=== PATIENT | female | born 1985 | race American Indian/Alaskan Native ===

== ENCOUNTER 2018-04-18 09:08 | Emergency (ER) | payer OTHER ==
[2018-04-18 09:31] VITALS: BP 117/66
[2018-04-18] MEDS ORDERED: TORADOL IV ONE (10:53)
[2018-04-18] MEDS ORDERED: BICILLIN L-A IM ONE (10:53)
[2018-04-18] MEDS ORDERED: NACL 0.9% 1000 ML 1,000 ML IV ONE (10:53)
[2018-04-18] MEDS ORDERED: DECADRON IV ONE (10:53)
--- NOTE | 2018-04-18 12:29 | Emergency Department Report ---
ED ENT HPI - General Chief complaint: Upper Respiratory Infection Stated complaint: SORE THROAT/NAUSEA/HEADACHE Time Seen by Provider: 04/18/18 10:43 Source: patient Mode of arrival: Ambulatory Limitations: No Limitations - History of Present Illness Initial comments: Patient is a 32-year-old [place] female who is presenting with sore throat. Patient states progressively worsening over the last 3 days. Patient is unable to swallow at this point. Patient states pain is a 8 out 10 in severity. She's had some chills but no objective fevers. Patient denies nausea vomiting. Patient states she sometimes has a sensation that she needs to cough however she is not having a productive cough at this time. Patient feels of a cough sensation is coming because of sore throat. Patient states when she swallows she feels very short of breath as well. - Related Data Previous Rx's Medication Instructions Recorded Last Taken Type HYDROcodone/ACETAMINOPHEN 15 ml PO Q6HR PRN #150 solution 04/18/18 Unknown Rx [Hydrocodon-Acetamin 7.5-325/15] prednisoLONE [Prednisolone] 45 mg PO DAILY 5 Days solution 04/18/18 Unknown Rx Allergies Allergy/AdvReac Type Severity Reaction Status Date / Time No Known Allergies Allergy Unverified 04/18/18 09:10 ED Dental HPI - General Chief complaint: Upper Respiratory Infection Stated complaint: SORE THROAT/NAUSEA/HEADACHE Time Seen by Provider: 04/18/18 10:43 Source: patient Mode of arrival: Ambulatory Limitations: No Limitations - Related Data Previous Rx's Medication Instructions Recorded Last Taken Type HYDROcodone/ACETAMINOPHEN 15 ml PO Q6HR PRN #150 solution 04/18/18 Unknown Rx [Hydrocodon-Acetamin 7.5-325/15] prednisoLONE [Prednisolone] 45 mg PO DAILY 5 Days solution 04/18/18 Unknown Rx Allergies Allergy/AdvReac Type Severity Reaction Status Date / Time No Known Allergies Allergy Unverified 04/18/18 09:10 ED Review of Systems ROS: Stated complaint: SORE THROAT/NAUSEA/HEADACHE Other details as noted in HPI Comment: All other systems reviewed and negative ED Past Medical Hx - Past Medical History Previous Medical History?: No - Surgical History Past Surgical History?: No - Social History Smoking Status: Never Smoker Substance Use Type: Alcohol - Medications Home Medications: Home Medications Medication Instructions Recorded Confirmed Last Taken Type HYDROcodone/ACETAMINOPHEN 15 ml PO Q6HR PRN #150 solution 04/18/18 Unknown Rx [Hydrocodon-Acetamin 7.5-325/15] prednisoLONE [Prednisolone] 45 mg PO DAILY 5 Days solution 04/18/18 Unknown Rx ED Physical Exam - General Limitations: No Limitations General appearance: alert, in no apparent distress - Head Head exam: Present: atraumatic, normocephalic - Eye Eye exam: Present: normal appearance - ENT ENT exam: Present: mucous membranes moist. Absent: normal orophraynx (patient has midline uvula. She does have extensive swelling to the bilateral tonsillar region. Patient with some palatal petechiae as well. Patient with a normal sounding voice.) - Neck Neck exam: Present: normal inspection, lymphadenopathy (anterior cervical lymph nodes are present) - Respiratory Respiratory exam: Present: normal lung sounds bilaterally. Absent: respiratory distress - Cardiovascular Cardiovascular Exam: Present: regular rate, normal rhythm. Absent: systolic murmur, diastolic murmur, rubs, gallop - GI/Abdominal GI/Abdominal exam: Present: soft, normal bowel sounds - Extremities Exam Extremities exam: Present: normal inspection - Back Exam Back exam: Present: normal inspection - Neurological Exam Neurological exam: Present: alert, oriented X3 - Psychiatric Psychiatric exam: Present: normal affect, normal mood - Skin Skin exam: Present: warm, dry, intact, normal color. Absent: rash ED Course Vital Signs 04/18/18 09:29 Temperature 98.4 F Pulse Rate 82 Respiratory 16 Rate Blood Pressure 117/66 O2 Sat by Pulse 97 Oximetry ED Medical Decision Making - Medical Decision Making Patient given a bag of IV fluids. Patient given Decadron for swelling. Patient states her pain is slightly increased with Toradol. Patient be sent home with liquid Lortab for pain. Patient has been given a Decadron shot. She does meet [facility] criteria for empiric treatment for pharyngitis. Critical care attestation.: If time is entered above; I have spent that time in minutes in the direct care of this critically ill patient, excluding procedure time. ED Disposition Clinical Impression: Pharyngitis Qualifiers: Pharyngitis/tonsillitis etiology: unspecified etiology Qualified Code(s): J02.9 - Acute pharyngitis, unspecified Disposition: TO HOME OR SELFCARE Is pt being admited?: No Does the pt Need Aspirin: No Condition: Stable Instructions: Pharyngitis (ED), Penicillin G Benzathine (Injection) Referrals: FRANCK MALHOTRA MD [Primary Care Provider] - 3-5 Days Time of Disposition: 12:29
== END 2018-04-18 12:45 | disposition home or self-care (01) ==
LOC: ED 09:08
DX: J02.9 Acute pharyngitis, unspecified (principal)
CPT/HCPCS: 96361; 96372; 96374; 96375; 99282; J0561; J1100; J1885; J7030